=== PATIENT | male | born 1955 | race Caucasian/White ===

== ENCOUNTER 2019-02-26 17:22 | Emergency (ER) | payer MEDICAID ==
[~2019-02-26] VITALS: Ht 180.3 cm; Wt 107.0 kg
[2019-02-26 17:41] VITALS: BP 131/60
--- NOTE | 2019-02-26 20:20 | NUR ---
CALLED IN LOBBY AND OUTSIDE WITH NO ANSWER
--- NOTE | 2019-02-26 20:26 | NUR ---
CALLED IN LOBBY AND OUTSIDE WITH NO ANSWER
--- NOTE | 2019-02-26 20:26 | NUR ---
PATIENT LEFT WITHOUT BEING SEEN BY DR. GUTIERREZ. NO FURTHER CARE PROVIDED FOR PATIENT.
--- NOTE | 2019-02-26 20:52 | NUR ---
[facility] aware of patient. Will assist with placement if and when needed. Please fax packet to [phone] for assistance
== END 2019-02-26 20:20 | disposition left against medical advice (07) ==
LOC: MED 17:22
DX: L02.419 Cutaneous abscess of limb, unspecified (principal); Z53.21 Procedure and treatment not carried out due to patient leaving prior to being seen by health care provider